=== PATIENT | male | born 1995 ===

== ENCOUNTER 2020-09-28 16:53 | Emergency (ER) | payer OTHER ==
[~2020-09-28] VITALS: Ht 172.7 cm; Wt 59.0 kg
[2020-09-28] MEDS ORDERED: ONDANSETRON ODT 4 MG PO ONE (17:30)
[2020-09-28 18:03] LABS: BASOPHILS % (AUTO) 1 % (0-1); EOSINOPHILS % (AUTO) 0 % (1-7); LYMPHOCYTES % (AUTO) 22 % (22-44); MEAN CORPUSCULAR HEMOGLOBIN 25.7 pg (27.5-34.5); MEAN CORPUSCULAR HGB CONC 33.2 g/dL (33.2-36.2); MEAN PLATELET VOLUME 9.7 fL (7.4-10.4); MONOCYTES % (AUTO) 8 % (2-9); NEUTROPHILS % (AUTO) 69 % (42-75); PLATELET COUNT 253 x10^3/uL (130-400); RED BLOOD COUNT 6.28 x10^6/uL (4.38-5.82)
[2020-09-28 18:19] LABS: ALBUMIN 4.7 g/dL (3.4-5.0); ANION GAP 14 mmol/L (5-15); CALCIUM 9.5 mg/dL (8.5-10.1); CHLORIDE 97 mmol/L (98-107)
[2020-09-28 18:22] LABS: ALANINE AMINOTRANSFERASE 21 U/L (12-78); ALKALINE PHOSPHATASE 80 U/L (45-117); BILIRUBIN,TOTAL 2.7 mg/dL (0.2-1.0); CREATININE 1.07 mg/dL (0.7-1.3); TOTAL PROTEIN 8.3 g/dL (6.4-8.2)
--- NOTE | 2020-09-28 19:33 | NUR ---
pt walked to room. gait steady. c/o some nausea right now. ate hamburger sunday, a lot of nausea and vomiting x3 days, today is a little better. no diarrhea. no abd pain. some tenderness to epgiastrum on palpation. no difficulty urinating. took zofran at home w no relief. vss. as
[2020-09-28] MEDS ORDERED: PANTOPRAZOLE 40 MG IV ONE (19:56)
[2020-09-28] MEDS ORDERED: ONDANSETRON 2MG/ML, 2ML ONE (19:56)
[2020-09-28] MEDS ORDERED: ONDANSETRON 2MG/ML, 2ML IVPush ONE (20:00)
[2020-09-28] MEDS ORDERED: LACTATED RINGERS 1,000 ML IVBOLUS ONE (20:00)
[2020-09-28] MEDS ORDERED: PANTOPRAZOLE 40 MG IV IVPush ONE (20:00)
[2020-09-28 20:43] VITALS: BP 124/84
== END 2020-09-28 21:35 | disposition home or self-care (01) ==
LOC: ED 21:33
DX: R11.2 Nausea with vomiting, unspecified (principal); R10.84 Generalized abdominal pain; E86.0 Dehydration; R20.2 Paresthesia of skin
CPT/HCPCS: 36415; 80053; 83690; 85025; 96361; 96374; 96375; 99284; C9113; J2405; J7120